=== PATIENT | female | born 1955 | race African-American/Black ===

== ENCOUNTER 2018-12-30 23:14 | Emergency (ER) | payer MEDICARE ==
[2018-12-30] MEDS ORDERED: ONDANSETRON HCL INJ/PF 4 MG/2 ML SDV IV ONE (23:34)
[2018-12-30] MEDS ORDERED: MORPHINE SULFATE 10 MG/ML INJ IV ONE (23:34)
--- NOTE | 2018-12-30 23:41 | ER Document Report ---
ED General - General Stated Complaint: LEG PAIN/SWELLING Time Seen by Provider: 12/30/18 23:25 Notes: Patient is a 63-year-old female that comes to the emergency department for chief complaint of dyspnea on exertion and shortness of breath when lying flat. She also states for the past week and a half she has had increased swelling to both of her legs. She states she was seen by primary care, had negative Dopplers of both legs, was started on Lasix 40 mg daily, has taken this for several days but has not seen any significant change. She denies chest pain, she denies any current shortness of breath, she denies any other complaints. She denies history of CHF, CAD, OR. Past medical history includes extensive back surgery with chronic back pain. She also states that she had infected hardware in her back and is on chronic prophylactic antibiotics. She denies smoking or COPD but states she has a history of asthma. Denies medical history otherwise. She st ates years ago she had a cardiac catheterization which was normal and she does not have any stents. - Related Data Allergies/Adverse Reactions: codeine Adverse Reaction (Mild, Verified 12/30/18 23:57) Nausea Past Medical History - General Information source: Patient - Social History Smoking Status: Never Smoker Frequency of alcohol use: None Drug Abuse: None Lives with: Family - daughter Family History: Reviewed & Not Pertinent Past Surgical History: Reports: Hx Orthopedic Surgery - Extensive back surgery - Immunizations Immunizations up to date: Yes Hx Diphtheria, Pertussis, Tetanus Vaccination: Yes Review of Systems - Review of Systems Constitutional: No symptoms reported EENT: No symptoms reported Cardiovascular: See HPI Respiratory: See HPI Gastrointestinal: No symptoms reported Genitourinary: No symptoms reported Female Genitourinary: No symptoms reported Musculoskeletal: See HPI Skin: No symptoms reported Hematologic/Lymphatic: No symptoms reported Neurological/Psychological: No symptoms reported Physical Exam - Vital signs Vitals: Temp Pulse Resp BP 98.6 F 72 10 L 159/95 H 12/30/18 23:14 12/30/18 23:14 12/30/18 23:14 12/30/18 23:14 - Notes Notes: GENERAL: Alert, interacts well. No acute distress. HEAD: Normocephalic, atraumatic. EYES: Pupils equal, round, and reactive to light. Extraocular movements intact. ENT: Oral mucosa moist, tongue midline. Oropharynx unremarkable. Airway patent. LUNGS: Clear to auscultation bilaterally, no wheezes, rales, or rhonchi. No respiratory distress. HEART: Regular rate and rhythm. No murmur ABDOMEN: Soft, non-tender. Non-distended. EXTREMITIES: Moves all 4 extremities spontaneously. 1+ bilateral edema, normal radial and dorsalis pedis pulses bilaterally. No cyanosis. No abnormal heat, tenderness, or erythema suggesting infection. BACK: no cervical, thoracic, lumbar midline tenderness. No saddle anesthesia, normal distal neurovascular exam. Moves all extremities in full range of motion. NEUROLOGICAL: Alert and oriented x3. Normal speech. Cranial nerves II through XII grossly intact. PSYCH: Normal affect and mood, however patient is slightly labile and becomes anxious easily SKIN: Warm, dry, normal turgor. No rashes or lesions noted. Course - Re-evaluation Re-evalutation: Patient is smiling and well-appearing although she does get fidgety complaining of pain in her back because of the stretcher. She denies other complaints at this time. She does have bilateral 1+ lower extremity edema without signs of infection or neurovascular compromise. She has clear lungs, unremarkable vital signs, no respiratory distress. Chest x-ray unremarkable, EKG without concerning ischemic findings, troponin negative despite symptoms going on for the past 2+ days, BNP is 800 but I do not have comparison, urinalysis unremarkable (does not appear to be the cause of back pain, suspect back pain is chronic as reported). CBC shows mild normocytic anemia, no leukocytosis. Chemistry nonspecific. Discussed with patient. D-dimer will be performed because of the uncertain c ause of her dyspnea on exertion, I did lie her flat and she did not appear to have any difficulty breathing. She still does not have any signs of distress. She still is only complaining of pain to her back because of the stretcher. D-dimer is elevated, CTA was performed, however this did not show any pulmonary embolism, concerning abnormality with the lungs. Possible area of infectious bronchiolitis, however patient does not have a cough, fever, leukocytosis, or any indication that bronchiolitis is the cause of her symptoms. I did discuss the patient with Dr. Cuadra. Patient is very relieved, smiling, laughing when I discussed her results. She states she is ready to leave. Patient will be given a dose of furosemide because of her lower semi-swelling, provided with compression stockings, she does have close primary care follow-up which she is undergoing already. Discussed return precautions. Patient states understanding and agreement with plan. Stable at time of discharge. - Vital Signs Vital signs: Temp Pulse Resp BP Pulse Ox 98.6 F 72 11 L 117/68 98 12/30/18 23:14 12/30/18 23:14 12/31/18 02:01 12/31/18 02:01 12/31/18 02:01 - Laboratory Result Diagrams: 12/30/18 23:46 12/30/18 23:46 Laboratory results interpreted by me: 12/30/18 12/30/18 12/30/18 23:46 23:46 23:46 RBC 3.19 L Hgb 10.1 L Hct 29.4 L RDW 14.6 H D-Dimer 1.75 H Chloride 108 H Est GFR (MDRD) Non-Af 54 L AST 73 H Alkaline Phosphatase 229 H Albumin 3.4 L Urine Blood Ur Leukocyte Esterase 12/31/18 00:15 RBC Hgb Hct RDW D-Dimer Chloride Est GFR (MDRD) Non-Af AST Alkaline Phosphatase Albumin Urine Blood SMALL H Ur Leukocyte Esterase TRACE H - EKG Interpretation by Me Additional EKG results interpreted by me: EKG shows sinus rhythm at a rate of 74, T wave inversion in lead III but no T wave inversions in consecutive leads, borderline left axis deviation, no ST segment changes in consecutive leads. Discharge - Discharge Clinical Impression: Swelling of both lower extremities, Shortness of breath Condition: Stable Disposition: HOME, SELF-CARE Additional Instructions: The scan of your chest does not show any concerning findings, your general work- up is reassuring. You have been given an IV dose of Lasix and the KAZ compression stockings, I recommend you wear these especially at night, elevate your legs when possible, this should help the fluid get off your legs. I suspect the fluid on your legs is being caused by venous insufficiency problem (problems with the veins returning blood flow in your legs close), however please follow-up closely with your provider for additional medication adjustments and work-up including possible echo as we discussed. Return if you worsen including difficulty breathing, chest pain, fever, severe worsening swelling, or any other concerning or worsening symptoms.
[2018-12-30 23:53] LABS: ABSOLUTE BASOPHILS # (AUTO) 0.1 10^3/uL (0.0-0.2); ABSOLUTE EOSINOPHILS # (AUTO) 0.5 10^3/uL (0.0-0.6); ABSOLUTE MONOCYTES (AUTO) 0.6 10^3/uL (0.1-1.4); ABSOLUTE NEUT (AUTO) 5.6 10^3/uL (1.7-8.2); BASOPHILS % (AUTO) 0.6 % (0-2); EOSINOPHILS % (AUTO) 5.2 % (0-6); HEMATOCRIT 29.4 % (36.0-47.0); HEMOGLOBIN 10.1 g/dL (12.0-15.5); LYMPHOCYTES % (AUTO) 30.5 % (13-45); MEAN CORPUSCULAR HEMOGLOBIN 31.6 pg (27.0-33.4); MEAN CORPUSCULAR HGB CONC 34.3 g/dL (32.0-36.0); MEAN CORPUSCULAR VOLUME 92 fl (80-97); MONOCYTES % (AUTO) 6.5 % (3-13); PLATELET COUNT 271 10^3/uL (150-450); RED BLOOD COUNT 3.19 10^6/uL (3.72-5.28); RED CELL DISTRIBUTION WIDTH 14.6 % (11.5-14.0); SEGMENTED NEUTROPHILS % (AUTO) 57.2 % (42-78); TOTAL CELLS COUNTED % (AUTO) 100 %; WHITE BLOOD COUNT 9.8 10^3/uL (4.0-10.5)
[2018-12-31 00:11] LABS: ALBUMIN 3.4 g/dL (3.5-5.0); ALKALINE PHOSPHATASE 229 U/L (38-126); ANION GAP 8 (5-19); ASPARTATE AMINO TRANSFERASE 73 U/L (14-36); BILIRUBIN,DIRECT 0.3 mg/dL (0.0-0.4); BILIRUBIN,TOTAL 0.3 mg/dL (0.2-1.3); BLOOD UREA NITROGEN 19 mg/dL (7-20); CALCIUM 8.8 mg/dL (8.4-10.2); CARBON DIOXIDE 23 mmol/L (22-30); CHLORIDE 108 mmol/L (98-107); GLUCOSE 78 mg/dL (75-110); POTASSIUM 4.4 mmol/L (3.6-5.0); TOTAL PROTEIN 6.7 g/dL (6.3-8.2)
[2018-12-31 00:19] LABS: NT PRO BNP 808 pg/mL (5-900)
[2018-12-31 00:23] LABS: TROPONIN I < 0.012 ng/mL
[2018-12-31 00:31] LABS: APPEARANCE,URINE CLEAR; BILIRUBIN,URINE NEGATIVE (NEGATIVE); COLOR,URINE YELLOW; GLUCOSE, URINE NEGATIVE (NEGATIVE); KETONES,URINE NEGATIVE (NEGATIVE); LEUKOCYTE ESTERASE,URINE TRACE (NEGATIVE); NITRITE,URINE NEGATIVE (NEGATIVE); PROTEIN,URINE NEGATIVE (NEGATIVE); URINE SPECIFIC GRAVITY 1.011; UROBILINOGEN,URINE NEGATIVE mg/dL (<2.0)
--- NOTE | 2018-12-31 00:36 | RADIOLOGY REPORT (SQ) ---
EXAM DESCRIPTION: XR CHEST 1 VIEW COMPLETED DATE/TME: 12/30/2018 23:33 CLINICAL HISTORY: shortness of breath COMPARISON: None FINDINGS: Cardiac silhouette is within normal limits. There is no focal parenchymal or pleural disease. There is no acute osseous process visualized. Patient is status post thoracolumbar surgery. EKG leads project over the chest. IMPRESSION: No evidence of acute cardiopulmonary disease.
[2018-12-31] MEDS ORDERED: MORPHINE SULFATE 10 MG/ML INJ IV ONE (01:09)
--- NOTE | 2018-12-31 02:23 | RADIOLOGY REPORT (SQ) ---
CT angiogram chest with contrast on 12/31/2018 at 1:46 AM CLINICAL INDICATION: Elevated d-dimer, shortness of breath TECHNIQUE: Multiple axial images are obtained throughout the chest following the administration of IV contrast. Computer generated 3D reconstructions/MIPS were performed. This exam was performed according to our departmental dose-optimization program, which includes automated exposure control, adjustment of the mA and/or kV according to patient size and/or use of iterative reconstruction technique. Total DLP is 444.03 mGy*cm. COMPARISON: None FINDINGS: There is no thoracic aortic aneurysm or dissection. The patient is status post gastric bypass surgery. The patient is status post cholecystectomy. There is a small left renal cyst. Limited visualized upper abdomen is otherwise unremarkable. There is no pleural or pericardial effusion. There is no thoracic adenopathy. There are no filling defects within the pulmonary arteries to suggest pulmonary embolus. There is minimal bilateral dependent and basilar atelectasis. There is minimal patchy opacity in the posterior right upper lobe that appears somewhat tree-in-bud and favor this to represent a mild area of infectious bronchiolitis. The lungs are otherwise clear. Extensive fusion hardware is noted in the thoracic spine. The patient is status post vertebroplasty/kyphoplasty of a couple of adjacent lower thoracic vertebral bodies. IMPRESSION: 1. No evidence of pulmonary embolus. 2. Minimal patchy opacity in the posterior right upper lobe favored to represent a small area of infectious bronchiolitis.
[2018-12-31] MEDS ORDERED: FUROSEMIDE INJ/PF 40 MG/4 ML SDV IV ONE (02:40)
[2018-12-31 04:37] VITALS: BP 184/76
--- NOTE | 2019-01-02 18:38 | EKG REPORT ---
SEVERITY:- ABNORMAL ECG - SINUS RHYTHM PROBABLE POSTERIOR INFARCT BORDERLINE T ABNORMALITIES, INFERIOR LEADS : Confirmed by: Madiha Sparrow 02-Jan-2019 18:37:20
== END 2018-12-31 04:35 | disposition home or self-care (01) ==
LOC: ER 23:14
DX: M79.89 Other specified soft tissue disorders (principal); M79.604 Pain in right leg; M79.605 Pain in left leg; R06.00 Dyspnea, unspecified
CPT/HCPCS: 93005; 96376; 99284; 96374; 96375; 36415; 85025; 80053; 81001; 84484; 85379; 83880; 71045; 71275; 93010; J1940; J2270 ×2; J2405